=== PATIENT | male | born 1940 | race African-American/Black ===

== ENCOUNTER 2023-12-21 11:55 | Emergency (ER) | payer MEDICARE ==
[~2023-12-21] VITALS: Ht 175.3 cm; Wt 85.0 kg
[2023-12-21 12:08] VITALS: O2SAT 99
[2023-12-21] MEDS ORDERED: NAPR-1176 MT (12:59)
[2023-12-21 13:25] VITALS: BP 126/56; PULSE 100; RESP 18; TEMP 36.89184; O2SAT 99
== END 2023-12-21 13:27 | disposition home or self-care (01) ==
LOC: ER 13:06
DX: M79.672 Pain in left foot (principal); Z79.1 Long term (current) use of non-steroidal anti-inflammatories (NSAID)
CPT/HCPCS: 99282